=== PATIENT | male | born 1965 ===

== ENCOUNTER 2016-12-12 09:10 | Emergency (ER) | payer OTHER ==
[2016-12-12 09:20] VITALS: TEMP 98; O2SAT 99
--- NOTE | 2016-12-12 09:51 | C.PDOC ---
History Of Present Illness 51 y/o M p/w dysuria and hematuria x 3 days. Describes dysuria as a burning sensation. Denies sex with anyone besides and is not concerned about STDs. Denies back pain, vomiting, or dyspnea. Time Seen by Provider: 12/12/16 09:28 Chief Complaint (Nursing): Male Genitourinary Past Medical History Vital Signs: Last Vital Signs Temp 98.0 F 12/12/16 09:16 Pulse 65 12/12/16 09:16 Resp 20 12/12/16 09:16 BP 144/84 12/12/16 09:16 Pulse Ox 99 12/12/16 10:00 Family History: States: No Known Family Hx - Social History Hx Alcohol Use: No Hx Substance Use: No - Immunization History Hx Tetanus Toxoid Vaccination: No Hx Influenza Vaccination: No Hx Pneumococcal Vaccination: No Review Of Systems Except As Marked, All Systems Reviewed And Found Negative. Respiratory: Negative for: Shortness of Breath Gastrointestinal: Negative for: Vomiting Physical Exam - Physical Exam Additional Physical Exam Comments: Constitutional: No acute distress. Head: Normocephalic. Atraumatic. Eyes: PERRL. EOMI ENT: Moist mucous membranes. Neck: Supple. Cardiovascular: Regular rate. Radial pulses 2+ bilaterally. Chest: No tenderness. Respiratory: Clear to auscultation bilaterally. GI: Soft. Suprapubic tenderness. Nondistended. : No testicular tenderness or swelling. Back: No CVA tenderness. No midline tenderness. Musculoskeletal: No tenderness or swelling of extremities. Skin: No rash. Neurologic: Alert, no focal defici ED Course And Treatment O2 Sat by Pulse Oximetry: 99 Medical Decision Making Medical Decision Making: Check UA for infection. UA with infection. Will treat with Levofloxacin, f/u PMD, instructed to f/u with Urology for persistent hematuria despite treatment. Disposition - Disposition Referrals: Juan Carlos James MD [Non-Staff] - Disposition: HOME/ ROUTINE Disposition Time: 11:02 Condition: STABLE Prescriptions: levoFLOXacin [Levaquin] 1 tab PO DAILY #10 tab Instructions: Urinary Tract Infection in Men (ED) Forms: [facility] (Welsh) - Clinical Impression Clinical Impression: UTI (urinary tract infection)
[2016-12-12 10:09] LABS: RBC URINE 268 /hpf (0-3); URINE BILIRUBIN NEGATIVE (NEGATIVE); URINE BLOOD 3+ (NEGATIVE); URINE COLOR Yellow (YELLOW); URINE GLUCOSE (UA) NORMAL (Normal); URINE KETONE NEGATIVE (NEGATIVE); URINE LEUKOCYTE ESTERASE 3+ Leu/uL (Negative); URINE PROTEIN 1+ mg/dL (NEGATIVE); URINE UROBILINOGEN NORMAL mg/dL (0.2-1.0); WBC URINE 501 /hpf (0-5)
[2016-12-12 11:15] VITALS: BP 138/81; PULSE 67; RESP 18
== END 2016-12-12 11:20 | disposition home or self-care (01) ==
LOC: C.ER 09:10
DX: N39.0 Urinary tract infection, site not specified (principal)

== ENCOUNTER 2017-02-22 18:09 | Emergency (ER) | payer OTHER ==
[2017-02-22 18:21] VITALS: BMI 37.1
[2017-02-22] MEDS ORDERED: Albuterol-Ipratrop 3 mg / 0.5 (3 ml) UD INH STA ×2 (18:23→19:19)
[2017-02-22 18:24] VITALS: RESP 20
--- NOTE | 2017-02-22 18:25 | C.PDOC ---
History Of Present Illness <Annalisa Cortez - Last Filed: 02/22/17 19:15> <Jodie Patel - Last Filed: 02/22/17 20:28> 51 y/o male with PMHx of Asthma presents to ED with complaints of tactile fever for 5 days with associated pleuritic chest pain and cough with green sputum. Patient is speaking in full sentences and denies , chills, nausea, vomiting or any other complaints at this time. (Annalisa Cortez) History Per: Patient History/Exam Limitations: no limitations Onset/Duration Of Symptoms: Days Current Symptoms Are (Timing): Still Present Initiating Event: Upper Respiratory Illness <Annalisa Cortez - Last Filed: 02/22/17 19:15> <Jodie Patel - Last Filed: 02/22/17 20:28> Time Seen by Provider: 02/22/17 18:17 Chief Complaint (Nursing): Shortness Of Breath Past Medical History Reviewed: Historical Data, Nursing Documentation, Vital Signs - Medical History PMH: No Chronic Diseases Surgical History: No Surg Hx Family History: States: No Known Family Hx - Social History Hx Alcohol Use: No Hx Substance Use: No - Immunization History Hx Tetanus Toxoid Vaccination: No Hx Influenza Vaccination: No Hx Pneumococcal Vaccination: No <Annalisa Cortez - Last Filed: 02/22/17 19:15> Vital Signs: Last Vital Signs Temp 100 F H 02/22/17 19:02 Pulse 103 H 02/22/17 19:02 Resp 20 02/22/17 19:02 BP 128/74 02/22/17 19:02 Pulse Ox 100 02/22/17 19:16 Review Of Systems Constitutional: Positive for: Fever Cardiovascular: Positive for: Chest Pain (pleuritic) Respiratory: Positive for: Cough. Negative for: Shortness of Breath Gastrointestinal: Negative for: Nausea, Vomiting Skin: Negative for: Rash <Annalisa Cortez - Last Filed: 02/22/17 19:15> Physical Exam - Physical Exam Appears: Non-toxic, No Acute Distress Skin: Normal Color, Warm, Dry, No Rash Head: Atraumatic, Normacephalic Ear(s): Bilateral: Normal Oral Mucosa: Moist Throat: Normal, No Erythema, No Exudate Neck: Supple Cardiovascular: Rhythm Regular, Other (Tachycardic) Respiratory: No Rales, No Rhonchi, Wheezing (bilateral expiratory) Gastrointestinal/Abdominal: Soft, No Tenderness, No Guarding, No Rebound Extremity: Normal ROM, Capillary Refill (<2 seconds) Neurological/Psych: Oriented x3 <Annalisa Cortez - Last Filed: 02/22/17 19:15> ED Course And Treatment - Laboratory Results Result Diagrams: 02/22/17 18:31 02/22/17 18:31 ECG: Interpreted By Me, Viewed By Me ECG Rhythm: Sinus Tachycardia Rate From EC (bpm) O2 Sat by Pulse Oximetry: 100 (RA) Pulse Ox Interpretation: Normal <Annalisa Cortez - Last Filed: 02/22/17 19:15> - Laboratory Results Result Diagrams: 02/22/17 18:31 02/22/17 18:31 Pulse Ox Interpretation: Normal - Radiology CXR: Interpreted by Me, Viewed By Me CXR Interpretation: No: Infiltrates, Fracture, Pnemothorax <Jodie Patel - Last Filed: 02/22/17 20:28> Disposition <Annalisa Cortez - Last Filed: 02/22/17 19:15> Counseled Patient/Family Regarding: Studies Performed, Diagnosis, Need For Followup, Rx Given - Disposition Disposition Time: 19:24 <Jodie Patel - Last Filed: 02/22/17 20:28> - Disposition Referrals: Juan Carlos James MD [Non-Staff] - Disposition: HOME/ ROUTINE Condition: FAIR Prescriptions: Albuterol HFA [Ventolin HFA 90 mcg/actuation (8 g)] 2 puff IH [id number] #1 puff Azithromycin [Zithromax Tri-Ted] 500 mg PO DAILY #3 tab Instructions: Asthma (DC) Forms: [employer] (Slovenian) - Clinical Impression Clinical Impression: Asthma exacerbation - PA / SURFACE [employer]ER / Resident Statement /DO has reviewed & agrees with the documentation as recorded. - Scribe Statement The provider has reviewed the documentation as recorded by the Scribe <Annalisa Cortez - Last Filed: 02/22/17 19:15> <Jodie Patel - Last Filed: 02/22/17 20:28> - Scribe Statement Maricsa Llanos All medical record entries made by the Scribe were at my direction and personally dictated by me. I have reviewed the chart and agree that the record accurately reflects my personal performance of the history, physical exam, medical decision making, and the department course for this patient. I have also personally directed, reviewed, and agree with the discharge instructions and disposition. (Annalisa Cortez) Physician Patient Turnover Patient Signed Over To: Jodie Patel Handoff Comments: f/u cxr, re-eval lungs. dispo accordingly <Annalisa Cortez - Last Filed: 02/22/17 19:15>
[2017-02-22 18:40] LABS: BASO # 0.1 K/uL (0.0-0.2); EOS # 0.1 K/uL (0.0-0.7); EOS % 1.3 % (0.0-4.0); HEMOGLOBIN 14.7 g/dL (12.0-18.0); LYMPH # 1.2 K/uL (1.0-4.3); LYMPH % 17.8 % (20.0-40.0); MEAN CELL VOLUME 90.8 fL (80.0-94.0); MEAN CORPUSCULAR HEMOGLOBIN 31.4 pg (27.0-31.0); MEAN CORPUSCULAR HGB CONC 34.5 g/dL (33.0-37.0); MEAN PLATELET VOLUME 8.5 fL (7.2-11.7); MONO # 0.7 K/uL (0.0-0.8); MONO % 11.2 % (0.0-10.0); NEUT # 4.6 K/uL (1.8-7.0); NEUT % 68.7 % (50.0-75.0); NRBC % 0.1 % (0.0-2.0); RBC 4.7 Mil/uL (4.40-5.90); RED CELL DISTRIBUTION WIDTH 13.5 % (11.5-14.5); WHITE BLOOD COUNT 6.6 K/uL (4.8-10.8)
[2017-02-22 18:51] LABS: ALB/GLOB RATIO 1.2 (1.0-2.1); ALBUMIN 4.2 g/dL (3.5-5.0); ALT/SGPT 77 U/L (21-72); AST/SGOT 41 U/L (17-59); BLOOD UREA NITROGEN 14 mg/dL (9-20); CALCIUM 8.5 mg/dl (8.6-10.4); GFR AFRICAN-AMERICAN > 60; GFR NON-AFRICAN AMERICAN > 60
[2017-02-22 19:30] LABS: SQUAMOUS EPITHIAL 2 /hpf (0-5); URINE BILIRUBIN NEGATIVE (NEGATIVE); URINE BLOOD 3+ (NEGATIVE); URINE CLARITY Clear (Clear); URINE COLOR Yellow (YELLOW); URINE GLUCOSE (UA) NORMAL (Normal); URINE LEUKOCYTE ESTERASE NEG Leu/uL (Negative); URINE NITRATE NEGATIVE (NEGATIVE); URINE PROTEIN 1+ mg/dL (NEGATIVE); URINE UROBILINOGEN NORMAL mg/dL (0.2-1.0)
[2017-02-22 20:43] VITALS: BP 121/78; PULSE 101; TEMP 99; O2SAT 95
--- NOTE | 2017-02-25 07:09 | CARD ---
APPROVED REPORT EKG Measurement Heart [id number] <Conclusion> Sinus tachycardia Otherwise normal ECG
== END 2017-02-22 20:45 | disposition home or self-care (01) ==
LOC: C.ER 18:09
DX: J45.901 Unspecified asthma with (acute) exacerbation (principal)